=== PATIENT | female | born 1950 | race Caucasian/White ===

== ENCOUNTER → 2016-10-10 | Outpatient (CLI) | payer BC | LOC: CIMAGING 12:02 | PROVIDERS: ATTEND Family Medicine | DX: R05 Cough (principal) | CPT/HCPCS: 71020-PO ==

== ENCOUNTER → 2018-11-08 | Outpatient (CLI) | payer OTHER | LOC: CIMAGING 09:40 | PROVIDERS: ATTEND Family Medicine | DX: R05 Cough (principal) | CPT/HCPCS: 71046-PO ==